=== PATIENT | female | born 1945 | race Caucasian/White ===

== ENCOUNTER 2022-06-23 08:55 | Inpatient (IN) ==
[2022-06-23] MEDS ORDERED: CeFAZolin Syr 2,000MG/20 ML 2,000 MG/20 ML SYRINGE IVPB ONE (09:08)
[2022-06-23] MEDS ORDERED: Ringers Solution, Lactated 1,000 ML IVC SCH (09:15)
[2022-06-23] MEDS ORDERED: *HR* OxyCODONE/APAP 5/325 TABLET ONE (10:03)
[2022-06-23] MEDS ORDERED: *HR* OxyCODONE/APAP 5/325 TABLET PO ONE (10:05)
[2022-06-23] MEDS ORDERED: Vancomycin 1,000 MG VIAL ONE (12:32)
[2022-06-23] MEDS ORDERED: *HR* FentaNYL (PF) 100 MCG/2 ML VIAL ONE ×3 (12:35→14:26)
[2022-06-23] MEDS ORDERED: *HR* Propofol 200 MG/20 ML VIAL IVP ONE (12:35)
[2022-06-23] MEDS ORDERED: *HR* Midazolam HCl 2 MG/2 ML VIAL ONE (12:35)
[2022-06-23] MEDS ORDERED: Ondansetron 4 MG/2 ML VIAL ONE (12:35)
[2022-06-23] MEDS ORDERED: *HR* Rocuronium Bromide 50 MG/5 ML VIAL ONE (12:35)
[2022-06-23] MEDS ORDERED: *HR* Labetalol 20 MG/4 ML SYRINGE IVP ONE (13:25)
[2022-06-23] MEDS ORDERED: EPHEDrine 50 MG/ML VIAL ONE (13:54)
[2022-06-23] MEDS ORDERED: Sugammadex Sodium 200 MG/2 ML VIAL IV ONE (14:30)
[2022-06-23] MEDS ORDERED: *HR* HYDROMORPHONE 2 MG/ML VIAL ONE (16:06)
[2022-06-23] MEDS: *HR* FentaNYL (PF) 100 MCG/2 ML VIAL IVP PRN ×4 (17:19→17:43)
[2022-06-23] MEDS ORDERED: *HR* HYDROcodone/Acet 5/325 mg TABLET PO PRN (17:45)
[2022-06-23] MEDS ORDERED: Naloxone 0.4 MG/ML INJ IVP PRN (17:45)
[2022-06-23] MEDS ORDERED: Ondansetron 4 MG/2 ML VIAL IVP PRN (17:45)
[2022-06-23] MEDS ORDERED: Acetaminophen IV 1,000 MG/100 ML BAG IVPB PRN (17:55)
[2022-06-23] MEDS: *HR* OxyCODONE Immed Rel 5 MG TABLET PO PRN (20:30)
[2022-06-23] MEDS: carvediloL 25 MG TABLET PO SCH (20:37)
[2022-06-23] MEDS: Acetaminophen 325 MG TABLET PO SCH (20:37)
[2022-06-23] MEDS: CeFAZolin 2 GM/120 ML BAG IVPB SCH (20:54)
[2022-06-24] MEDS: Acetaminophen 325 MG TABLET PO SCH ×4 (01:14→16:44)
[2022-06-24] MEDS: *HR* OxyCODONE Immed Rel 5 MG TABLET PO PRN ×3 (02:35→16:44)
[2022-06-24] MEDS: CeFAZolin 2 GM/120 ML BAG IVPB SCH (06:06)
[2022-06-24] MEDS: carvediloL 25 MG TABLET PO SCH ×2 (09:03→16:44)
[2022-06-24] MEDS: *HR* Metformin 500 MG TABLET PO SCH ×2 (09:04→16:44)
[2022-06-24] MEDS ORDERED: Dextrose Gel 15 GM/37.5 ML TUBE PO PRN ×2 (19:17)
[2022-06-24] MEDS ORDERED: *HR* Dextrose 50 % in Water (Syg) 50 ML SYRINGE IVP PRN (19:17)
[2022-06-24] MEDS: Ringers Solution, Lactated 1,000 ML IVC SCH (20:54)
[2022-06-25] MEDS: Ringers Solution, Lactated 1,000 ML IVC SCH (00:18)
[2022-06-25] MEDS: Acetaminophen 325 MG TABLET PO SCH ×4 (00:18→18:41)
[2022-06-25] MEDS: *HR* OxyCODONE Immed Rel 5 MG TABLET PO PRN ×3 (04:12→17:45)
[2022-06-25] MEDS: carvediloL 25 MG TABLET PO SCH ×2 (09:08→15:46)
[2022-06-25] MEDS: *HR* Metformin 500 MG TABLET PO SCH ×2 (09:08→15:46)
[2022-06-26] MEDS: Acetaminophen 325 MG TABLET PO SCH ×4 (00:03→18:11)
[2022-06-26] MEDS: *HR* OxyCODONE Immed Rel 5 MG TABLET PO PRN ×3 (01:41→18:26)
[2022-06-26] MEDS: *HR* Metformin 500 MG TABLET PO SCH ×2 (10:15→18:11)
[2022-06-26] MEDS: carvediloL 25 MG TABLET PO SCH ×2 (10:15→18:11)
[2022-06-27] MEDS: *HR* OxyCODONE Immed Rel 5 MG TABLET PO PRN ×4 (00:37→20:37)
[2022-06-27] MEDS: Acetaminophen 325 MG TABLET PO SCH ×4 (00:37→17:55)
[2022-06-27] MEDS: carvediloL 25 MG TABLET PO SCH ×2 (08:09→17:55)
[2022-06-27] MEDS: *HR* Metformin 500 MG TABLET PO SCH ×2 (08:09→17:55)
[2022-06-27] MEDS: Ringers Solution, Lactated 1,000 ML IVC SCH ×2 (22:50→22:51)
[2022-06-28] MEDS: Acetaminophen 325 MG TABLET PO SCH ×3 (00:01→11:58)
[2022-06-28] MEDS: *HR* OxyCODONE Immed Rel 5 MG TABLET PO PRN ×2 (05:40→11:58)
[2022-06-28 06:49] VITALS: O2SAT 95
[2022-06-28] MEDS: carvediloL 25 MG TABLET PO SCH (07:57)
[2022-06-28] MEDS: *HR* Metformin 500 MG TABLET PO SCH (07:57)
[2022-06-28 10:26] VITALS: BP 155/62; PULSE 69; TEMP 97.6
== END 2022-06-28 12:06 | disposition home health service (06) | DRG 460 ==
LOC: SDCAOSI 08:55 → 4WAOSI 18:26
PROVIDERS: ADMIT Student in an Organized Health Care Education/Training Program; ATTEND Student in an Organized Health Care Education/Training Program